=== PATIENT | female | born 1985 | race Caucasian/White ===

== ENCOUNTER 2016-07-18 11:07 | Emergency (ER) | payer MEDICAID ==
[~2016-07-18] VITALS: Ht 167.6 cm; Wt 77.0 kg
[~2016-07-18 11:07] MED LIST: ACET-818 PO; ACET500C5 PO; CEPH500C PO; FAMO-18 PO; HYDR-762 PO; METO10TA92 PO; METO5TAB11 PO; ONDA-43 PO; ONDA4TAB8 PO; PANT40TA3 PO; PHEN-538 PO
[2016-07-18 11:12] VITALS: Ht 167.6 cm; Wt 77.0 kg
[2016-07-18] MEDS ORDERED: ONDANSETRON (ODT) 4 MG TAB ODT STA (12:40)
[2016-07-18] MEDS ORDERED: IBUPROFEN 800 MG TAB PO ONE (13:00)
[2016-07-18 13:32] LABS: URINE BLOOD (Dip) POC Negative (NEGATIVE)
--- NOTE | 2016-07-18 13:45 | ERD ---
ER Documentation Chief Complaint Date/Time DATE: 07/18/16 TIME: 13:41 Chief Complaint QUARLES, nausea, diarrhea X 1 week. HPI This is a 31-year-old female who presents to the emergency department today complaining of headache, nausea and diarrhea for the past week. States that her son also has a same symptoms. States that she is on money at this time and has been eating a food pantry and she states that some of the food is . He is not taken any medication for the pain. Denies any fevers or chills. ROS All systems reviewed and are negative except as per history of present illness. Medications Home Meds Active Scripts Loperamide Hcl* (Imodium*) 2 Mg Capsule, 2 MG PO .AFTER EA LOOSE BM Y for DIARRHEA, #10 TAB Prov:VANESSA LAUREN PA-C 07/18/16 Ondansetron Hcl* (Zofran*) 4 Mg Tablet, 4 MG PO Q6H for NAUSEA AND/OR VOMITING, #30 TAB Prov:VANESSA LAUREN PA-C 07/18/16 Acetaminophen* (Tylophen*) 500 Mg Capsule, 1 CAP PO Q6H Y for PAIN AND OR ELEVATED TEMP, #30 CAP Prov:VANESSA LAUREN PA-C 07/18/16 Ibuprofen* (Motrin*) 800 Mg Tab, 800 MG PO Q6, #30 TAB Prov:VANESSA LAUREN PA-C 07/18/16 Acetaminophen* (Tylophen*) 500 Mg Capsule, 500 MG PO Q6H Y for PAIN LEVEL 1-5, # 20 TAB Prov:ZAID FARIA 04/18/15 Ondansetron Hcl* (Zofran*) 4 Mg Tablet, 4 MG PO Q8, #20 TAB Prov:ZAID FARIA 04/18/15 Famotidine* (Pepcid*) 20 Mg Tablet, 20 MG PO DAILY for 30 Days, TAB Prov:ZAID FARIA 04/18/15 Metoclopramide* (Reglan*) 10 Mg Tablet, 10 MG PO Q6 Y for NAUSEA AND/OR VOMITING , #20 TAB Prov:CIARA LYN MD 02/19/15 Hydrocodone Bit-Acetaminophen* ([place]*) 10-325 Mg Tablet, 1 TAB PO Q6 Y for PAIN , #20 TAB Prov:CIARA LYN MD 02/19/15 Pantoprazole* (Protonix*) 40 Mg Tablet.dr, 40 MG PO DAILY, #30 TAB Prov:CIARA LYN MD 02/19/15 Ondansetron Hcl* (Zofran*) 4 Mg Tab, 4 MG PO Q6H Y for NAUSEA AND OR VOMITING, # 20 TAB Prov:SPARKLE ROBLES 04/22/14 Reported Medications Phenazopyridine Hcl* (Pyridium*) 200 Mg Tab, 200 MG PO TID Y for DYSURIA, TAB 04/21/14 Acetaminophen-Codeine* (Tylenol No.3*) 300-30 Mg Tablet, 1 TAB PO Q8 Y for PAIN , TAB 04/21/14 Metoclopramide Hcl* (Metoclopramide Hcl*) 5 Mg Tablet, 5 MG PO TID, TAB 04/20/14 Cephalexin* (Cephalexin*) 500 Mg Capsule, 500 MG PO QID, CAP 04/19/14 Allergies Allergies: Coded Allergies: No Known Allergy (Unverified , 04/17/15) PMhx/Soc History of Surgery: Yes (cholecystectomy , c section ) Anesthesia Reaction: No Hx Neurological Disorder: No Hx Respiratory Disorders: No Hx Cardiac Disorders: No Hx Psychiatric Problems: No Hx Miscellaneous Medical Probl: Yes (acid reflux ) Hx Alcohol Use: Yes (socially) Hx Substance Use: No Hx Tobacco Use: No Smoking Status: Never smoker Physical Exam Vitals Vital Signs Date Time Temp Pulse Resp B/P Pulse Ox O2 Delivery O2 Flow Rate FiO2 07/18/16 11:12 98.4 75 18 132/82 98 Physical Exam Const: No acute distress Head: Atraumatic Eyes: Normal Conjunctiva ENT: Normal External Ears, Nose and Mouth. Neck: Full range of motion..~ No meningismus. Resp: Clear to auscultation bilaterally Cardio: Regular rate and rhythm, no murmurs Abd: Soft, suprapubic tenderness, non distended. Normal bowel sounds. No right lower quadrant pain. No left lower quadrant pain. Skin: No petechiae or rashes Neur: Awake and alert Psych: Normal Mood and Affect Results 24 hrs Laboratory Tests Test 07/18/16 13:33 Bedside Urine Blood Negative Bedside Urine Glucose (UA) Negative Bedside Urine Ketones (LAB) Trace Bedside Urine Leukocyte Esterase (L Negative Bedside Urine Nitrite (LAB) Negative Bedside Urine Protein (LAB) Negative Bedside Urine pH (LAB) 5.5 Current Medications Medications (Trade) Dose Ordered Sig/[place] Route PRN Reason Start Time Stop Time Status Last Admin Dose Admin Ondansetron HCl (Zofran Odt) 4 mg ONCE STAT ODT 07/18/16 12:40 07/18/16 12:42 DC 07/18/16 12:57 Ibuprofen (Motrin) 800 mg ONCE ONCE PO 07/18/16 13:00 07/18/16 13:01 DC 07/18/16 12:57 Procedures/MDM This is a 31-year-old female who presents to the emergency department today complaining of nausea, headache and diarrhea for the past week. Patient indicated that she is low on money at this time and has been eating at a food pantry and states that some of the food is . Patient states her son also has similar symptoms. Patient also had some suprapubic tenderness on physical exam and therefore did obtain a UA UA is negative for infection. test is negative Patient's symptoms at this time consistent with nausea and diarrhea versus gastroenteritis possibly viral specially given that son have the exact same symptoms. I do not feel the patient requires laboratory work or imaging at this time. She is afebrile and otherwise well-appearing. has no right upper quadrant pain and no right lower quadrant or left lower quadrant pain and low suspicion for acute surgical abdomen. I Do not feel the patient requires antibiotics. Patient given Zofran and Motrin here in the emergency department and symptoms improved. Patient will be given a perception for Tylenol, Motrin, Zofran and Imodium. At this time the patient is stable for discharge and outpatient management. Patient should follow up with their PCP in the next 1-2 days. They may return to the emergency department sooner for any persistent or worsening of symptoms. Patient understood and agreed with the plan. Departure Diagnosis: Primary Impression: Multiple complaints Condition: VANESSA Dang PA-C Jul 18, 2016 13:45
[2016-07-18] MEDS ORDERED: LOPE2CAP PO (13:46)
[2016-07-18] MEDS ORDERED: ONDA4TAB8 PO (13:46)
[2016-07-18] MEDS ORDERED: ACET500C5 PO (13:46)
[2016-07-18] MEDS ORDERED: IBUP800T25 PO (13:46)
== END 2016-07-18 14:08 | disposition home or self-care (01) ==
LOC: FTE 11:07
DX: R51 Headache (principal); R11.0 Nausea; R19.7 Diarrhea, unspecified; R10.30 Lower abdominal pain, unspecified
CPT/HCPCS: 81003; Z7610; 99283

== ENCOUNTER 2016-09-29 20:17 | Emergency (ER) | payer SELFPAY ==
[~2016-09-29] VITALS: Ht 162.6 cm; Wt 88.0 kg
[~2016-09-29 20:17] MED LIST changes: +IBUP800T25 PO; +LOPE2CAP PO
[2016-09-29 20:23] VITALS: Ht 162.6 cm; Wt 88.0 kg
== END 2016-09-29 22:11 | disposition left against medical advice (07) ==
LOC: FTE 20:17
DX: Z53.21 Procedure and treatment not carried out due to patient leaving prior to being seen by health care provider (principal)

== ENCOUNTER 2017-11-20 09:39 | Emergency (ER) | END 2017-11-20 11:45 | disposition home or self-care (01) ==

== ENCOUNTER 2018-02-28 13:54 | Emergency (ER) | END 2018-02-28 19:36 | disposition home or self-care (01) ==

== ENCOUNTER 2018-03-13 09:00 | Emergency (ER) | END 2018-03-13 13:07 | disposition home or self-care (01) ==

== ENCOUNTER 2018-05-23 10:48 | Emergency (ER) | END 2018-05-23 11:49 | disposition home or self-care (01) ==

== ENCOUNTER 2018-08-24 20:34 | Outpatient (CLI) | payer MEDICAID ==
[~2018-08-24] VITALS: Ht 167.6 cm; Wt 103.5 kg
[2018-08-24 20:27] VITALS: Ht 167.6 cm; Wt 103.5 kg
[~2018-08-24 20:34] MED LIST changes: -ACET-818 PO; -ACET500C5 PO; -CEPH500C PO; -FAMO-18 PO; +FERR325T5 PO; -HYDR-762 PO; -IBUP800T25 PO; -LOPE2CAP PO; -METO10TA92 PO; -METO5TAB11 PO; -ONDA-43 PO; -ONDA4TAB8 PO; -PANT40TA3 PO; -PHEN-538 PO; +PREN-93 PO
[2018-08-24 20:42] VITALS: BP 106/65; PULSE 89; RESP 18
[2018-08-25] MEDS ORDERED: LACTATED RINGER'S 500 ML IV ONE
[2018-08-25] MEDS ORDERED: LACTATED RINGER'S 1,000 ML IV SCH (00:30)
--- NOTE | 2018-08-25 01:35 | PN ---
Triage Information Date/Time Reason for visit: Possible leakage of fluid Weeks of Gestation 31-week and 5 days /Para Diabetes: none Hypertention: none Objective Vital Signs Date Temp Pulse Resp B/P (MAP) Pulse Ox O2 O2 Flow FiO2 Time Delivery Rate 08/24/18 98.2 89 18 106/65 Room Air 20:42 (79) Heart Rate: 150's Contractions: None Results/Medications Results 24 hrs Laboratory Tests Test 08/24/18 21:10 Membranes Rupture NEGATIVE Medications Current Medications Lactated Ringer's 1,000 ml @ 125 mls/hr Q8H IV Last administered on 08/25/18at 00:27; Admin Dose 125 MLS/HR; Start 08/25/18 at 00:30 Imaging Results Single live intrauterine gestation. Cardiac activity: 163 beats per minute. Presentation: Cephalic Placenta: Location: Anterior. Appearance: No abruption. Amniotic Fluid: LAUREN = 11.13 cm Gestational Age: LMP estimated gestational age: 32 weeks 0 days IMPRESSION: 1. Single live intrauterine gestation. 2. Amniotic fluid index is 11.13 cm, within normal limits. Disposition: Discharge Assessment/Plan 33-year-old with single intrauterine at 31 weeks and 5 days with a HILARY of 10/19/2018 complaining of possible leakage of fluid. She states good movement. She denies nausea, vomiting, shortness of breath, chest pain, headache, visual changes, vaginal bleeding. -FHR: No sign of metabolic acidosis- Category I. -There was prolonged acceleration, IV fluid given. -Contractions: None -Speculum exam performed, no leakage or gush of fluid seen. Nitrazine and ROM plus were negative -Ultrasound performed as noted above -Contractions: None -Symptoms and sign of labor, preeclampsia, kick count discussed with patient, she voiced understanding. All of her questions answered. -Patient was discharged home in stable condition with the appropriate discharge instructions provided. I would like patient to have close follow-up with her primary physician or outpatient clinic in 1-2 days or return to triage for worsening symptoms or any other urgent concerns. DOROTEO ZAIDI Aug 25, 2018 01:35
--- NOTE | 2018-08-25 01:46 | TRIAGE ---
OB Triage Datetime Report Generated by CPN: 08/25/2018 01:46 Datetime: 08/25/2018 01:30 Labor Evaluation Frequency: none Monitor Mode: External Heart Rate FHR Baseline Rate: 135 Monitor Mode: External US Variability: Moderate 6-25 bpm Accelerations: 15X15 Decelerations: None Category: Category I Datetime: 08/25/2018 01:00 Labor Evaluation Frequency: none Monitor Mode: External Heart Rate FHR Baseline Rate: 135 Monitor Mode: External US Variability: Moderate 6-25 bpm Accelerations: 15X15 Decelerations: None Comments: Frequent loss of contact Datetime: 08/25/2018 00:26 Labor Evaluation Frequency: none Monitor Mode: External Pattern: Normal: <= 5 Contractions in 10 Minutes Resting Tone [place]: Relaxed Heart Rate FHR Baseline Rate: 135 Monitor Mode: External US FHR Baseline Changes: No Baseline Change Variability: Moderate 6-25 bpm Accelerations: 15X15 Decelerations: None Category: Category I Datetime: 08/25/2018 00:00 Labor Evaluation Frequency: x1 Monitor Mode: External Duration (sec)2399: 60 Heart Rate FHR Baseline Rate: 140 Monitor Mode: External US Variability: Moderate 6-25 bpm Accelerations: Prolonged Decelerations: Variable Datetime: 08/24/2018 23:48 Comments: Patient states she feels active movement. Datetime: 08/24/2018 23:11 Stage of : OB Triage Temperature Route: Oral Resting Tone [place]: Relaxed Contraction Comments: no contractions palpated at this time Comments: Patient states she feels active movement. Datetime: 08/24/2018 23:00 Labor Evaluation Frequency: x1 Monitor Mode: External Duration (sec)2399: 120 Heart Rate FHR Baseline Rate: 145 Monitor Mode: External US Variability: Moderate 6-25 bpm Accelerations: Prolonged Decelerations: None Category: Category I Datetime: 08/24/2018 22:10 Vaginal Exam Membrane Status: Intact Datetime: 08/24/2018 22:00 Labor Evaluation Frequency: none Monitor Mode: External Heart Rate FHR Baseline Rate: 135 Monitor Mode: External US Variability: Moderate 6-25 bpm Accelerations: Prolonged Decelerations: None Category: Category I Datetime: 08/24/2018 21:09 Pool: Negative Nitrazine: Negative Datetime: 08/24/2018 21:00 Labor Evaluation Frequency: x1 Monitor Mode: External Duration (sec)2399: 80 Heart Rate FHR Baseline Rate: 145 Monitor Mode: External US Variability: Moderate 6-25 bpm Accelerations: 15X15 Decelerations: None Datetime: 08/24/2018 20:42 Stage of : OB Triage Assessment Type: Triage Maternal Assessment Level of Consciousness: Fully Conscious DTR's/Clonus: DTRs 2+; No Clonus Headache: Denies Blurred Vision: No Respiratory Effort: Unlabored; Regular Rhythm; Equal Expansion Breath Sounds, Left: Clear and Equal Breath Sounds, Right: Clear and Equal Nausea/Vomiting: Denies RUQ Epigastric Pain: Denies Lower Extremities Edema: None Degree: None Upper Extremities Edema: None Degree: None Facial Edema: None Temperature Route: Oral Fall Risk Assessment History of Falling: (0) No Secondary Diagnosis: (0) No Ambulatory Aid: (0) Bedrest/Nurse Assist IV Therapy: (0) No Gait: (0) Normal/Bedrest/Immobile Mental Status: (0) Oriented to Own Ability Fall Score: 0 Fall Risk Score Definition: No Risk: No action required Comments: Patient states she feels active movement. Pain Assessment Pain Scale: 6 Pain Presence: Intermittent Pain Type: Pressure Pain Location: Abdomen Pain Relief Measures: Comfort Measures Datetime: 08/24/2018 20:39 Monitor Mode: External (Annotations: applied) Resting Tone [place]: Relaxed Monitor Mode: External US (Annotations: applied) Datetime: 08/24/2018 20:27 Time of Arrival: 08/24/2018 20:27 EGA: 31.5 Arrived By: Wheelchair Arrived From: Home Chief Complaint: Leaking since 08/24/18 at 2000 Movement: Present Contractions: Denies/Absent Rupture of Membranes: Unsure Vaginal Bleeding: None Vaginal Discharge: Denies Recent Sexual Intercouse: Denies Abdominal Trauma: Not Applicable Patient Complaints: Other Additional Patient Complaints: abdominal pressure Time Provider Notified: 08/24/2018 21:39 Provider Notified: Dr. Santacruz Initial Plan: EFM x2 Datetime: 07/30/2018 17:30 Labor Evaluation Frequency: NONE Monitor Mode: External Pattern: Normal: <= 5 Contractions in 10 Minutes Resting Tone [place]: Relaxed Heart Rate FHR Baseline Rate: 155 Monitor Mode: External US FHR Baseline Changes: No Baseline Change Variability: Moderate 6-25 bpm Accelerations: 15X15 Decelerations: None Category: Category I Datetime: 07/30/2018 16:30 Labor Evaluation Frequency: NONE Monitor Mode: External Pattern: Normal: <= 5 Contractions in 10 Minutes Resting Tone [place]: Relaxed Heart Rate FHR Baseline Rate: 150 Monitor Mode: External US FHR Baseline Changes: No Baseline Change Variability: Moderate 6-25 bpm Accelerations: 15X15 Decelerations: None Category: Category I Datetime: 07/30/2018 15:30 Labor Evaluation Frequency: NONE Monitor Mode: External Pattern: Normal: <= 5 Contractions in 10 Minutes Resting Tone [place]: Relaxed Heart Rate FHR Baseline Rate: 150 Monitor Mode: External US FHR Baseline Changes: No Baseline Change Variability: Moderate 6-25 bpm Accelerations: 15X15 Decelerations: None Category: Category I Datetime: 07/30/2018 14:30 Labor Evaluation Frequency: 0 Monitor Mode: External Heart Rate FHR Baseline Rate: 150 Monitor Mode: External US FHR Baseline Changes: No Baseline Change Variability: Moderate 6-25 bpm Accelerations: 10X10 Decelerations: None Category: Category I Datetime: 07/30/2018 13:30 Labor Evaluation Frequency: 0 Monitor Mode: External Heart Rate FHR Baseline Rate: 145 Monitor Mode: External US FHR Baseline Changes: No Baseline Change Variability: Moderate 6-25 bpm Accelerations: 10X10 Decelerations: None Category: Category I Datetime: 07/30/2018 12:50 Stage of : OB Triage Assessment Type: Triage Maternal Assessment Level of Consciousness: Fully Conscious DTR's/Clonus: DTRs 2+; No Clonus Headache: Denies Blurred Vision: No Respiratory Effort: Unlabored; Regular Rhythm; Equal Expansion Breath Sounds, Left: Clear and Equal Breath Sounds, Right: Clear and Equal Nausea/Vomiting: Denies RUQ Epigastric Pain: Denies Lower Extremities Edema: None Upper Extremities Edema: None Facial Edema: None Temperature Route: Oral Fall Risk Assessment History of Falling: (0) No Secondary Diagnosis: (0) No Ambulatory Aid: (0) Bedrest/Nurse Assist IV Therapy: (0) No Gait: (0) Normal/Bedrest/Immobile Mental Status: (0) Oriented to Own Ability Fall Score: 0 Fall Risk Score Definition: No Risk: No action required Pain Assessment Pain Scale: 0 Pain Presence: None/Denies Pain Type: N/A Pain Goal: 2 Datetime: 07/30/2018 12:41 Time of Arrival: 07/30/2018 12:40 EGA: 28.1 Arrived By: Ambulatory Arrived From: Home Chief Complaint: CHEST PAIN, DIZZINESS, NAUSEA/VOMITING, CRAMPING AT C/S SITE Movement: Present Contractions: Occasional Rupture of Membranes: Denies Vaginal Bleeding: None Vaginal Discharge: Denies Recent Sexual Intercouse: Denies Abdominal Trauma: Not Applicable Patient Complaints: Cramping; Other Initial Plan: NST Datetime: 07/14/2018 19:00 Arrived By: Ambulatory Arrived From: Home Movement: Present Rupture of Membranes: Denies Vaginal Bleeding: None Vaginal Discharge: Denies Recent Sexual Intercouse: Denies Abdominal Trauma: Not Applicable Patient Complaints: Other Datetime: 07/14/2018 14:09 EGA: 25.6 Fall Score: 0 Fall Risk Score Definition: No Risk: No action required
== END 2018-08-25 01:41 | disposition home or self-care (01) ==
LOC: OBT 20:34 → L-D 20:35 → OBT 08-25 01:41
PROVIDERS: ATTEND Obstetrics & Gynecology
DX: O41.93X0 Disorder of amniotic fluid and membranes, unspecified, third trimester, not applicable or unspecified (principal); Z3A.31 31 weeks gestation of pregnancy
CPT/HCPCS: 36415; 76815; 84112; 96360; J7120; Z7500; G0463

== ENCOUNTER 2018-09-10 20:26 | Inpatient (IN) | payer MEDICAID ==
[~2018-09-10] VITALS: Ht 167.6 cm; Wt 103.9 kg
[2018-09-10 20:43] VITALS: BP 116/69; PULSE 94; Ht 167.6 cm; Wt 103.9 kg
[2018-09-10] MEDS ORDERED: NA PHOSPHATE/BIPHOS 133 ML ENEMA PR ONE (21:00)
[2018-09-10] MEDS ORDERED: MAGNESIUM HYDROXIDE 30ML CUP PO ONE (22:00)
[2018-09-10] MEDS ORDERED: BISACODYL 10 MG SUPP PR ONE (22:00)
[2018-09-10] MEDS: LACTATED RINGER'S 1,000 ML IV SCH (22:17)
[2018-09-11] MEDS ORDERED: ACETAMINOPHEN 325 MG TAB PO PRN
[2018-09-11] MEDS: LACTATED RINGER'S 1,000 ML IV SCH ×5 (00:05→14:56)
--- NOTE | 2018-09-11 00:21 | HP ---
Date/Time of Note Date/Time of Note DATE: 09/11/18 TIME: 00:11 OB - History Hx of Present Free Text/Dictation 09/11/2018 Estimated Due Date: Oct 19, 2018 : 3 Para: 2 Spontaneous : 0 Therapeutic : 0 Care: Good Care Obstetrical Complications: None Medical Complications: None Other Concerns: 33-year-old wtih IUP at 34 weeks and 1 day and history of chronic constipation that worsened during presented to the hospital with co mplaint of worsening of her constipation, bloating symptoms, nausea and vomiting for the past 5 months. Patient reports had been taking MiraLAX and stool softener and did not help with her symptoms.\ Patient reports is able to pass gas. Denies any fever or chills. had been in triage since afternoon and had Fleet enema as well as received Dulcolax vaginal suppository and milk of magnesia and that did not help with constipation. Still is not able to defecate. Reports crampy pain in the upper and lower a bdomen especially after he received a stool softener. There was occasional rate contraction on the monitor that resolved after h ydration. Antepartum course was uncomplicated. Past medical history: Denies any medical problems except constipation Past surgical history: None Allergy history: NKDA Social history. Patient denies of smoking drinking alcohol or using any drugs Past Family/Social History * Past Medical, Surgical, Family and Obstetric Histories reviewed from chart. OB Admission Exam Vital Signs Vital Signs Vital Signs Date Temp Pulse Resp B/P (MAP) Pulse Ox O2 O2 Flow FiO2 Time Delivery Rate 09/10/18 98.2 94 116/69 20:43 (85) Physical Exam HEENT: WNL Lungs: Clear Abdomen: WNL Extremities: Normal Cervical Dilatation: None Effacement: 0% Membranes: Intact Heart Rate: 130's Accelerations: Accelerations Present Decelerations: No Decelerations Varibility: Moderate Contractions on Admission: None Intensity: Mild OB Assessment/Plan Other Assessment: IUP at 34 weeks and 1 day Chronic constipation. Worsened in Patient received plenty of stool softener and enema Still feels significant constipation and unable to defecate Exam did not show evidence of fecal impaction. Pelvic exam. cervix is closed and long, no evidence of labor Admit the patient to antepartum service Consider Magnesium citrate. Possible GI consult tomorrow if the symptoms persists Continous monitoring. Base line cervical length ordered. GODWIN GOYAL MD Sep 11, 2018 00:21
[2018-09-11] MEDS ORDERED: MAGNESIUM CITRATE 300 ML BTL PO ONE (00:30)
[2018-09-11] MEDS: PRENATAL VITAMIN PO SCH (10:10)
[2018-09-11] MEDS: DOCUSATE SODIUM 100 MG CAP PO SCH ×2 (10:10→21:58)
[2018-09-11] MEDS: AL HYDROX/MG HYDROX/SIMETH 30 ML CUP PO PRN (15:03)
--- NOTE | 2018-09-11 15:24 | CONS ---
Assessment/Plan Assessment/Plan Hospital Course (Demo Recall) Summary Assessment and Plan: Assessment: Single uterine at 34 weeks Chronic constipation -x3 episodes of diarrhea after laxatives Reported Dark stool- likely 2/2 to iron - will check CBC in am Nausea/vomiting- improved Plan: CBC in am Add MiraLAX BID- to assist with sx, Diet as tolerated Will hold off on imaging at this time, pt now having BMs- if sx worsen will consider MRI Further recommendations based on clinical course Nurse states pt c/o some nausea- will order x1 dose of Zofran 4mg -Checked with pharmacy to verify safety profile in at patient who is 34 weeks Pt seen in collaboration with Dr. Malik CC: ORLIN MALIK ; Consultation Date/Type/Reason Admit Date/Time Sep 11, 2018 at 00:00 Date of Consultation: Sep 11, 2018 Type of Consult GI Reason for Consultation Worsening constipation/Abdominal pain Date/Time of Note DATE: 09/11/18 TIME: 15:18 Hx of Present Illness This is a 33-year-old female currently 32 weeks who presented to the hospital with worsening abdominal pain secondary to constipation and associated with nausea/vomiting. Patient states she has had chronic constipation whole life she is previously been Reglan 2 other times without issues regarding constipation. However this she is noted difficulty having bowel movements. Her last bowel movement was 3 days ago described as hard pebble- like. She additionally complained remote history of dark stool, currently she is taking vitamins with iron. Hemoglobin has not been checked.At home patient reports taking MiraLAX and stool softeners which did not help her symptoms she is able to pass gas since hospitalization she received fleets enema as well as Dulcolax vaginal suppository and milk of magnesia. Today she has had x3 episodes of watery brown diarrhea. She denies abdominal pain with palpation, c/o some nausea without vomiting. At this point symptoms appear to be improving, we will add MiraLAX BID, and check CBC to assess for anemia. Review of Systems: A 12 system, review was conducted and is negative except as noted in the HPI or here. Past Medical History Home Meds Reported Medications Ferrous Sulfate (Ferrous Sulfate) 325 Mg Tablet., 325 MG PO 07/14/18 Vit No.124/Iron/FA ( Vitamin Tablet) 1 Each Tablet, 1 EACH PO, TAB 07/14/18 Medications Current Medications Lactated Ringer's 1,000 ml @ 250 mls/hr Q4H IV Last administered on 09/10/18at 22:17; Admin Dose 250 MLS/HR; Start 09/10/18 at 22:00 Lactated Ringer's 1,000 ml @ 125 mls/hr Q8H IV Last administered on 09/11/18at 14:56; Admin Dose 125 MLS/HR; Start 09/10/18 at 23:49 Prenat Multivit/ [place]/Iron/Folic Ac () 1 tab DAILY PO Last administered on 09/11/18 10:10; Admin Dose 1 TAB; Start 09/11/18 at 09:00 Docusate Sodium (Colace) 100 mg BID PO Last administered on 09/11/18 10:10; Admin Dose 100 MG; Start 09/11/18 at 09:00 Acetaminophen (Tylenol Tab) 650 mg Q4H PRN PO .PAIN OR TEMP Last administered on 09/11/18at 00:05; Admin Dose 650 MG; Start 09/11/18 at 00:00 Al Hydrox/Mg Hydrox/Simethicone (Mag-Al Plus) 30 ml Q6H PRN PO .GI UPSET Last a dministered on 09/11/18at 15:03; Admin Dose 30 ML; Start 09/11/18 at 00:00 Allergies: Coded Allergies: No Known Allergy (Unverified , 08/24/18) Social History Smoking Status: Never smoker Exam/Review of Systems Exam Vitals Vital Signs Date Temp Pulse Resp B/P (MAP) Pulse Ox O2 O2 Flow FiO2 Time Delivery Rate 09/10/18 98.2 94 116/69 20:43 (85) Intake and Output 09/10/18 09/10/18 09/11/18 1515:00 23:00 07:00 IntakeIntake Total 1750 ml OutputOutput Total 1200 ml BalanceBalance 550 ml Exam PHYSICAL EXAMINATION: GENERAL: Well developed, well nourished, alert & oriented x 3, in no acute distress, 34 week female SKIN: No lesions EYES: Pupils equal reactive to light and accommodation, no discharge. EARS/NOSE AND THROAT: Ears normal, nose normal, oropharynx normal NECK: Supple, no masses CHEST: Inspection within normal limits. CARDIOVASCULAR: Heart: Regular rate and rhythm RESPIRATORY: Lungs clear to auscultation GASTROINTESTINAL AND LIVER: Abdomen: Soft, non tenderness, distended- pt 34 weeks , no hernias, no masses, no organomegaly, no ascites, no guarding, no rebound tenderness, normoactive bowel sounds. Rectal: external hemorrhoids noted Medications Medication Current Medications Lactated Ringer's 1,000 ml @ 250 mls/hr Q4H IV Last administered on 09/10/18 22:17; Admin Dose 250 MLS/HR; Start 09/10/18 at 22:00 Lactated Ringer's 1,000 ml @ 125 mls/hr Q8H IV Last administered on 09/11/18 14:56; Admin Dose 125 MLS/HR; Start 09/10/18 at 23:49 Prenat Multivit/ [place]/Iron/Folic Ac () 1 tab DAILY PO Last administered on 09/11/18 10:10; Admin Dose 1 TAB; Start 09/11/18 at 09:00 Docusate Sodium (Colace) 100 mg BID PO Last administered on 09/11/18 10:10; Admin Dose 100 MG; Start 09/11/18 at 09:00 Acetaminophen (Tylenol Tab) 650 mg Q4H PRN PO .PAIN OR TEMP Last administered on 09/11/18 00:05; Admin Dose 650 MG; Start 09/11/18 at 00:00 Al Hydrox/Mg Hydrox/Simethicone (Mag-Al Plus) 30 ml Q6H PRN PO .GI UPSET Last administered on 09/11/18 15:03; Admin Dose 30 ML; Start 09/11/18 at 00:00 MYRNA LANGFORD Sep 11, 2018 15:24
[2018-09-11] MEDS ORDERED: POLYETHYLENE GLYCOL 17 GM PACKET PO SCH (15:30)
[2018-09-11] MEDS ORDERED: ONDANSETRON 4 MG INJ IV ONE (16:00)
[2018-09-11] MEDS: POLYETHYLENE GLYCOL 17 GM PACKET PO SCH (23:29)
[2018-09-12] MEDS: LACTATED RINGER'S 1,000 ML IV SCH ×2 (00:17→08:13)
[2018-09-12] MEDS: AL HYDROX/MG HYDROX/SIMETH 30 ML CUP PO PRN ×2 (05:20→16:59)
[2018-09-12] MEDS: POLYETHYLENE GLYCOL 17 GM PACKET PO SCH (08:13)
[2018-09-12] MEDS: DOCUSATE SODIUM 100 MG CAP PO SCH (16:59)
[2018-09-12] MEDS: PRENATAL VITAMIN PO SCH (16:59)
--- NOTE | 2018-09-12 18:15 | PN ---
Date/Time of Note Date/Time of Note DATE: 09/12/18 TIME: 18:07 Assessment/Plan VTE Prophylaxis SCD applied (from Nsg): Yes Pharmacological prophylaxis: NA/contraindicated Pharm contraindication: other Lines/Catheters IV Catheter Type (from Nrsg): Peripheral IV Assessment/Plan Assessment/Plan Assessment: Single uterine at 34 weeks Pyrosis History of bulimia History of hyperemesis gravidarum Chronic constipation -x3 episodes of diarrhea after laxatives Reported Dark stool- likely 2/2 to iron - will check CBC in am Nausea/vomiting- improved Plan: Start Zantac twice daily Continue MiraLAX BID Diet as tolerated Nurse states pt c/o some nausea- will order x1 dose of Zofran 4mg -Checked with pharmacy to verify safety profile in at patient who is 34 weeks Pt seen in collaboration with Dr. Reed Subjective: Patient is having regular bowel movements on MiraLAX. She had watery bowel movements yesterday and formed stool today x2. She denies abdominal pain. Complaining of chronic heartburn. Patient reports history of bulimia and hyperemesis gravidarum during her first trimester. Recommend Zantac twice daily for heartburn. Further workup as an EGD or possible gastric emptying study should be done after giving . Patient has been suffering from chronic constipation most of her life. Discussed low-fat map diet, fiber supplements, probiotics and MiraLAX use. Exam PHYSICAL EXAMINATION: GENERAL: Well developed, well nourished, alert & oriented x 3, in no acute distress, 34 week female SKIN: No lesions EYES: Pupils equal reactive to light and accommodation, no discharge. EARS/NOSE AND THROAT: Ears normal, nose normal, oropharynx normal NECK: Supple, no masses CHEST: Inspection within normal limits. CARDIOVASCULAR: Heart: Regular rate and rhythm RESPIRATORY: Lungs clear to auscultation GASTROINTESTINAL AND LIVER: Abdomen: Soft, non tenderness, distended- pt 34 weeks , no hernias, no masses, no organomegaly, no ascites, no guarding, no rebound tenderness, normoactive bowel sounds. Rectal: external hemorrhoids noted Result Diagram: 09/12/18 0427 Results 24hrs Laboratory Tests Test 09/12/18 04:27 09/12/18 05:56 White Blood Count 7.5 Red Blood Count 3.67 L Hemoglobin 11.5 L Hematocrit 35.0 L Mean Corpuscular Volume 95.4 Mean Corpuscular Hemoglobin 31.3 Mean Corpuscular Hemoglobin Concent 32.9 Red Cell Distribution Width 14.2 Platelet Count 185 Mean Platelet Volume 11.5 H Immature Granulocytes % 0.500 H Neutrophils % 53.0 Lymphocytes % 36.5 Monocytes % 9.1 Eosinophils % 0.5 Basophils % 0.4 Nucleated Red Blood Cells % 0.0 Immature Granulocytes # 0.040 H Neutrophils # 4.0 Lymphocytes # 2.7 Monocytes # 0.7 Eosinophils # 0.0 Basophils # 0.0 Nucleated Red Blood Cells # 0.0 Lab Scanned Report REFERENCE LAB CC: TIFFANY REED MD ; Exam/Review of Systems Exam Vitals Vital Signs Date Temp Pulse Resp B/P (MAP) Pulse Ox O2 O2 Flow FiO2 Time Delivery Rate 09/10/18 98.2 94 116/69 20:43 (85) Intake and Output 09/11/18 09/11/18 09/12/18 1515:00 23:00 07:00 IntakeIntake Total 2900 ml 1825 ml OutputOutput Total 1300 ml 1500 ml BalanceBalance 1600 ml 325 ml Results Results 24hrs Laboratory Tests Test 09/12/18 04:27 09/12/18 05:56 White Blood Count 7.5 Red Blood Count 3.67 L Hemoglobin 11.5 L Hematocrit 35.0 L Mean Corpuscular Volume 95.4 Mean Corpuscular Hemoglobin 31.3 Mean Corpuscular Hemoglobin Concent 32.9 Red Cell Distribution Width 14.2 Platelet Count 185 Mean Platelet Volume 11.5 H Immature Granulocytes % 0.500 H Neutrophils % 53.0 Lymphocytes % 36.5 Monocytes % 9.1 Eosinophils % 0.5 Basophils % 0.4 Nucleated Red Blood Cells % 0.0 Immature Granulocytes # 0.040 H Neutrophils # 4.0 Lymphocytes # 2.7 Monocytes # 0.7 Eosinophils # 0.0 Basophils # 0.0 Nucleated Red Blood Cells # 0.0 Lab Scanned Report REFERENCE LAB Medications Medication Current Medications Lactated Ringer's 1,000 ml @ 125 mls/hr Q8H IV Last administered on 09/12/18at 08:13; Admin Dose 125 MLS/HR; Start 09/10/18 at 23:49 Prenat Multivit/ Merchandise Flow Team Member/Iron/Folic Ac () 1 tab DAILY PO Last administered on 09/12/18at 16:59; Admin Dose 1 TAB; Start 09/11/18 at 09:00 Docusate Sodium (Colace) 100 mg BID PO Last administered on 09/12/18 16:59; Admin Dose 100 MG; Start 09/11/18 at 09:00 Acetaminophen (Tylenol Tab) 650 mg Q4H PRN PO .PAIN OR TEMP Last administered on 09/11/18at 00:05; Admin Dose 650 MG; Start 09/11/18 at 00:00 Al Hydrox/Mg Hydrox/Simethicone (Mag-Al Plus) 30 ml Q6H PRN PO .GI UPSET Last administered on 09/12/18 16:59; Admin Dose 30 ML; Start 09/11/18 at 00:00 Polyethylene Glycol (Miralax) 17 gm BID PO Last administered on 09/12/18at 08:13; Admin Dose 17 GM; Start 09/11/18 at 21:00 CAROLINE BARORSO NP Sep 12, 2018 18:15
--- NOTE | 2018-09-12 19:08 | DS ---
Date/Time of Note Date/Time of Note DATE: 09/12/18 TIME: 19:05 Obstetrical Discharge Record Final Diagnosis Final Diagnosis: not delivered Other Final Diagnosis constipation Complications Augmentation: No Induction: No Rupture of Membranes: No Condition on Discharge Physical Assessment Last Vitals: vss afebrile Voiding: Yes Bowel Movement: Yes Breast: Soft, non-tender Fundus: Other () Abdomen and Incision: soft no tenderness Episiotomy: n/a Calf Tenderness: No Patient Condition: Stable ( , undelivered) BRYAN WILSON MD Sep 12, 2018 19:08
[2018-09-12] MEDS ORDERED: RANITIDINE 150 MG TAB PO SCH (21:00)
== END 2018-09-12 19:15 | disposition home or self-care (01) | DRG 833 ==
LOC: OBT 20:26 → L-D 20:27 → OBT 09-11 → L-D 09-11
PROVIDERS: ADMIT Obstetrics & Gynecology; ATTEND Obstetrics & Gynecology
DX: O99.613 Diseases of the digestive system complicating pregnancy, third trimester (principal); K59.09 Other constipation; R12 Heartburn; O21.8 Other vomiting complicating pregnancy; Z3A.34 34 weeks gestation of pregnancy
CPT/HCPCS: 36415; 76817; 76818; 85025; 96360; G0463; J2405; J7120

== ENCOUNTER 2018-09-19 11:25 | Inpatient (IN) | payer MEDICAID ==
[2018-09-19] MEDS ORDERED: AL HYDROX/MG HYDROX/SIMETH 30 ML CUP PO ONE (12:00)
[2018-09-19] MEDS ORDERED: LACTATED RINGER'S 1,000 ML IV ONE ×2 (14:30→18:10)
[2018-09-19] MEDS ORDERED: TERBUTALINE 1 MG/ML INJ SC ONE (17:30)
[2018-09-19] MEDS ORDERED: LACTATED RINGER'S 1,000 ML IV SCH ×2 (17:47→22:46)
[2018-09-19] MEDS ORDERED: MISOPROSTOL 200 MCG TAB PR PRN ×2 (18:00→23:00)
[2018-09-19] MEDS ORDERED: OXYTOCIN 30 UNITS/LR 500 ML IV PRN ×2 (18:00→23:00)
[2018-09-19] MEDS ORDERED: METHYLERGONOVINE 0.2 MG INJ IM PRN ×2 (18:00→23:00)
[2018-09-19] MEDS ORDERED: CEFAZOLIN 2 GM/50 ML (PMX) 50 ML IVPB SCH (18:00)
[2018-09-19] MEDS ORDERED: OXYTOCIN 30 UNITS/LR 500 ML IV SCH ×2 (18:00→22:46)
[2018-09-19] MEDS ORDERED: CARBOPROST 250 MCG INJ IM PRN ×2 (18:00→23:00)
--- NOTE | 2018-09-19 18:07 | PREAC ---
Date/Time of Note Date/Time of Note DATE: 09/19/18 TIME: 18:05 Anesthesia Eval and Record Evaluation Time Pre-Procedure Interview DATE: 09/19/18 TIME: 18:05 Age 33 Sex female NPO: 8 hrs Preoperative diagnosis intrauterine Planned procedure repeat c section Past Medical History Past Medical History: Includes : : (3), Para: (2), Gestational age: (35.5) Surgery & Anesthesia Issues No known issue Meds Anticoagulation: No Beta Jamila within 24 hr: No Reason Beta Jamila not given: Pt. not on B-Jamila Reported Medications Ferrous Sulfate (Ferrous Sulfate) 325 Mg Tablet.dr, 325 MG PO 07/14/18 Vit No.124/Iron/FA ( Vitamin Tablet) 1 Each Tablet, 1 EACH PO, TAB 07/14/18 Current Medications Lactated Ringer's 1,000 ml @ 125 mls/hr Q8H IV Last administered on 09/19/18at 17:56; Admin Dose 125 MLS/HR; Start 09/19/18 at 17:47 Cefazolin Sodium/ Dextrose 50 ml @ 100 mls/hr ONCE IVPB ; Start 09/19/18 at 18:00 Oxytocin/Lactated Ringer's 500 ml @ 125 mls/hr POST IV ; Start 09/19/18 at 18:00 Oxytocin/Lactated Ringer's 500 ml @ 0 mls/hr ONCE PRN IV .VAGINAL BLEEDING; Start 09/19/18 at 18:00 Methylergonovine Maleate (Methergine) 0.2 mg ONCE PRN IM .VAGINAL BLEEDING; Start 09/19/18 at 18:00 Carboprost Tromethamine (Hemabate) 250 mcg ONCE PRN IM .VAGINAL BLEEDING; Start 09/19/18 at 18:00 Misoprostol (Cytotec) 1,000 mcg ONCE PRN MN .VAGINAL BLEEDING; Start 09/19/18 at 18:00 Meds reviewed: Yes Allergies Coded Allergies: No Known Allergy (Unverified , 08/24/18) Allergies Reviewed: Yes Labs/Studies Labs Reviewed: Reviewed by anesthesiologist Result Diagram: 09/19/18 1451 09/19/18 1451 Laboratory Tests 09/19/18 14:51 test: N/A Pre-procedure Exam Airway: Adequate mouth opening, Adequate thyromental dist Mallampati: Mallampati II Teeth: Normal Lung: Normal Heart: Normal ASA Physical Status ASA physical status: 2 Emergency: None Planned Anesthetic Neuraxial: Spinal Planned Pain Management Sub-arachniod narcotics, Parenteral pain med Pre-operative Attestations Prior to commencing anesthesia and surgery, the patient was re-evaluated, there was verification of: *The patient's identity *The results of appropriate recent lab work and preoperative vital signs *The above evaluation not changing prior to induction *Anesthetic plan, risk benefits, alternative and complications discussed with patient/family; questions answered; patient/family understands, accepts and wishes to proceed. YANG ANDERSON MD Sep 19, 2018 18:07
--- NOTE | 2018-09-19 18:24 | HP ---
Date/Time of Note Date/Time of Note DATE: 09/19/18 TIME: 18:23 OB - History Hx of Present Free Text/Dictation WITH PRIOR C/S ADMITTED FOR UTERINE CTX S AND PT REFUSED TERBUTAILINE AND UTERINE CTXS EVERY 3 MINUTES AND PT FEELING THEM. Care: Good Care Ultrasounds: Normal mid trimester US Obstetrical Complications: None Medical Complications: None Past Family/Social History * Past Medical, Surgical, Family and Obstetric Histories reviewed from chart. OB Admission Exam Physical Exam HEENT: WNL Heart: Rhythm Normal Lungs: Clear, Equal Abdomen: WNL Extremities: Normal Reflexes: Normal Cervical Dilatation: 1cm Effacement: 50% Station: -1 Membranes: Intact Heart Rate: 130's Accelerations: Accelerations Present Decelerations: No Decelerations Varibility: Moderate Contractions on Admission: < 5 Minutes Apart Intensity: Moderate Last 72 hours Lab Results CBC & BMP 09/19/18 14:51 Liver Function Test 09/19/18 14:51 Alanine Aminotransferase (ALT/SGPT) 36 Albumin 3.5 Alkaline Phosphatase 154 H Aspartate Amino Transf (AST/SGOT) 36 Direct Bilirubin 0.00 Total Protein 6.7 OB Assessment/Plan Reason for admission: active labor Plan: Section BERRY MALCOLM MD Sep 19, 2018 18:24
[2018-09-19] MEDS ORDERED: FAMOTIDINE 20 MG INJ IV ONE (18:30)
[2018-09-19] MEDS ORDERED: CITRIC ACID/NA CITRATE 30 ML CUP PO ONE (18:30)
[2018-09-19] MEDS ORDERED: METOCLOPRAMIDE 10 MG INJ IV ONE (18:30)
[2018-09-19] MEDS ORDERED: OXYTOCIN 30 UNITS/LR 500 ML IV ONE ×2 (18:42→19:14)
[2018-09-19] MEDS ORDERED: morphine SULFATE/PF (10 MG/10 ML) INJ ONE (18:42)
[2018-09-19] MEDS ORDERED: PHENYLephrine (100 MCG/ML) 5ML SYG ONE ×2 (18:54→19:13)
[2018-09-19] MEDS ORDERED: ONDANSETRON 4 MG INJ ONE (19:05)
[2018-09-19] MEDS ORDERED: EPHEDrine SULFATE 50 MG/5 ML SYG ONE (19:14)
--- NOTE | 2018-09-19 19:30 | OPR ---
Operative Report Planned Procedure Procedure date Sep 19, 2018 Procedure(s) 35 WEEKS IN LABOR Performed by see signature line [employer] Teacher: BRYAN WILSON MD Pre-procedure diagnosis REPEAT IN LABOR [id number] Anesthesia Type: [id number] spinal Post-Procedure Post-procedure diagnosis SAME Findings Live Baby [], Apgars [] and [], weight [], position [], [] presentation []cord. Estimated Blood Loss: 600 - 700 mls Specimen(s) none Grafts/Implant(s) none Complication(s) none Pt Condition post procedure: stable Disposition: PACU Procedure Description Under satisfactory [SPINAL ] anesthesia, the patient was prepped and draped and placed in a supine position, tilted to the left. Pfannenstiel incision was made, carried through the subcutaneous tissue. Bleeders brought under control with electrocautery. Fascia incised to the length of the incision. Rectus muscles from the fascia, divided midline. Peritoneum exposed, entered through a transverse incision. Exploration of abdomen revealed gravid uterus. Bladder flap was developed. Transverse incision was made in the lower segment of the uterus. Amniotic sac ruptured. [CLEAR ] amniotic fluid noted. [] Nasal oropharyngeal suction was performed. The baby was handed to the team for immediate attention. The placenta was delivered manually intact. Uterine cavity was cleaned with wet sponge and drainage established. Uterus closed in 2 layers using [ONE MONOCRYL] in continuous fashion. Peritoneal cavity irrigated with warm saline. Sponge, needle and instrument count reported to be correct. Abdominal peritoneum closed with [] continuously. Rectus muscle approximated with []. Fascia closed with ONE MONOCRYL[], and skin closed with luis. Estimated blood loss [700]mL. BERRY MALCOLM MD Sep 19, 2018 19:30
--- NOTE | 2018-09-19 19:36 | PAC ---
Date/Time of Note Date/Time of Note DATE: 09/19/18 TIME: 19:36 Post-Anesthesia Notes Post-Anesthesia Note Activity: WNL Respiratory function: WNL Cardiovascular function: WNL Mental status: Baseline Pain reasonably controlled: Yes Hydration appropriate: Yes Nausea/Vomiting absent: Yes Comments BP: 123/59 HR: 96 RR: 15 T: 98 SaO2: 99% YANG ANDERSON MD Sep 19, 2018 19:36
[2018-09-19] MEDS ORDERED: HYDROmorphONE 0.5 MG/0.5 ML SYG IV PRN ×2 (20:00)
[2018-09-19] MEDS ORDERED: ONDANSETRON 4 MG INJ IV PRN (20:00)
[2018-09-19] MEDS ORDERED: ZOLPIDEM 5 MG TAB PO PRN (20:00)
[2018-09-19] MEDS ORDERED: NALOXONE (0.4 MG/ML) INJ IV PRN (20:00)
[2018-09-19] MEDS ORDERED: DIPHENHYDRAMINE 50 MG INJ IV PRN (20:00)
[2018-09-19 22:10] VITALS: BP 122/75; PULSE 80; RESP 18
[2018-09-19 22:30] VITALS: BP 140/82; PULSE 101; RESP 19
[2018-09-19] MEDS ORDERED: NACL 0.9% 3 ML SYG IV SCH (23:00)
[2018-09-19] MEDS ORDERED: NA PHOSPHATE/BIPHOS 133 ML ENEMA PR PRN (23:00)
[2018-09-19] MEDS: KETOROLAC 30 MG INJ IV PRN (23:01)
[2018-09-19 23:30] VITALS: BP 121/52; PULSE 98; RESP 19
[2018-09-20 00:15] VITALS: BP 111/59; PULSE 71; RESP 18
[2018-09-20 03:52] VITALS: BP 119/68; PULSE 76; RESP 18
--- NOTE | 2018-09-20 07:26 | QN ---
Documentation Comment doing well vss abd soft d/c IV and OOB BERRY MALCOLM MD Sep 20, 2018 07:26
[2018-09-20 08:00] VITALS: BP 102/57; PULSE 80; RESP 18
[2018-09-20] MEDS: KETOROLAC 30 MG INJ IV PRN ×2 (09:00→18:42)
[2018-09-20] MEDS: LANOLIN HPA 1 PKT TOP PRN (18:54)
[2018-09-20 19:45] VITALS: BP 94/53; PULSE 80; RESP 18
[2018-09-20] MEDS: IBUPROFEN 800 MG TAB PO SCH (21:43)
[2018-09-21 04:07] VITALS: BP 92/51; PULSE 71; RESP 18
[2018-09-21] MEDS: IBUPROFEN 800 MG TAB PO SCH ×3 (05:31→21:34)
[2018-09-21 08:00] VITALS: BP 101/50; PULSE 64; RESP 19
--- NOTE | 2018-09-21 13:20 | QN ---
Documentation Comment POD#2 is stable afebrile tolerates diet No VB +Flatus +Voids VS stable Gen NAD Abd soft NT ND Incision intact Gentalia No blood at perineum -->Discharge plan tomorrow -->Ambulation -->Precautions discussed MARIO DOE M.D. Sep 21, 2018 13:20
[2018-09-21 15:53] VITALS: BP 103/59; PULSE 87; RESP 20
[2018-09-21 20:00] VITALS: BP 108/54; PULSE 66; RESP 18
[2018-09-22] VITALS (7 sets, daily range): BP systolic 105–141; BP diastolic 52–84; PULSE 20–85; RESP 18–20
[2018-09-22] MEDS: IBUPROFEN 800 MG TAB PO SCH ×3 (05:43→22:06)
[2018-09-22] MEDS: LANOLIN HPA 1 PKT TOP PRN (08:01)
--- NOTE | 2018-09-22 08:14 | DS ---
Date/Time of Note Date/Time of Note DATE: 09/22/18 TIME: 08:13 Discharge Summary Admission/Discharge Info Admit Date/Time Sep 19, 2018 at 17:45 Discharge Date/Time Discharge Diagnosis term Patient Condition: Stable Hospital Course unremarkable Home Meds Reported Medications Ferrous Sulfate (Ferrous Sulfate) 325 Mg Tablet.dr, 325 MG PO 07/14/18 Vit No.124/Iron/FA ( Vitamin Tablet) 1 Each Tablet, 1 EACH PO, TAB 07/14/18 Primary Care Provider Care Physician No Primary BERRY MALCOLM MD Sep 22, 2018 08:14
[2018-09-22] MEDS ORDERED: DIPHTH/TET/ACEL PERTUSS (ADULT) 0.5 ML VIAL IM* ONE (09:00)
[2018-09-22] MEDS ORDERED: MEASLES,MUMPS,RUBELLA VACCINE INJ SC* ONE (09:00)
[2018-09-23] MEDS: HYDROCODONE/APAP (5/325) TAB PO PRN ×2 (03:42→04:54)
[2018-09-23 04:20] VITALS: BP 105/66; PULSE 72; RESP 18
[2018-09-23] MEDS: IBUPROFEN 800 MG TAB PO SCH (05:42)
[2018-09-23 08:16] VITALS: BP 94/56; PULSE 52; RESP 18
--- NOTE | 2018-09-24 14:35 | DELSUM ---
Delivery Summary A-C Datetime Report Generated by CPN: 09/24/2018 12:31 DELIVERY PERSONNEL Cans Vacuum Tester: Jamie, Angelita MATERNAL INFORMATION Delivery Anesthesia: Spinal Medications in Delivery: See Anesthesia Record Delivery QBL (ml): 600 Placenta Cultured: No Maternal Complications: None LABOR SUMMARY EDC: 10/19/2018 00:00 No. Babies in Womb: 1 Attempted: No Labor Anesthesia: None LABOR INFORMATION Reason for Induction: Not Applicable Onset of Labor: 09/18/2018 18:00 Oxytocin: N/A Group B Beta Strep: Not Done Antibiotics # of Doses: x1 Ancef Antibiotics Time of Last Dose: 09/19/2018 18:52 Steroids Given: None Reason Steroids Not Administered: Not Applicable MEMBRANES Membranes Rupture Method: Artificial Rupture of Membranes: 09/19/2018 19:02 Length of Rupture (hr): 0.00 Amniotic Fluid Color: Clear Amniotic Fluid Amount: Moderate Amniotic Fluid Odor: None STAGES OF LABOR Stage 3 hr: 0 Stage 3 min: 1 Total Time in Labor hr: 25 Total Time in Labor min: 3 CSECTION DELIVERY Primary Indication: Repeat Elective Secondary Indication: N/A CSection Urgency: Non Elective CSection Incidence: Repeat Labor: No Labor Elective: Elective CSection Incision: Lower Uterine Transverse BABY A INFORMATION Delivery Date/Time: 09/19/2018 19:02 Method of Delivery: Born in Route : No : N/A Forceps: N/A Vacuum Extraction: N/A Shoulder Dystocia : N/A SHOULDER DYSTOCIA BABY A Infant Delivery Date/Time: 09/19/2018 19:02 PRESENTATION/POSITION BABY A Presentation: Cephalic Cephalic Presentation: Vertex Vertex Position: Left Occipital Anterior Breech Presentation: N/A PLACENTA INFORMATION BABY A Placenta Delivery Time : 09/19/2018 19:03 Placenta Method of Delivery: Manual Removal Placenta Status: Delivered SCORES BABY A Heart Rate 1 min: >100 bpm Resp Effort 1 min: Good Cry Reflex Irritability 1 min: Cough/Sneeze/Pulls Away Muscle Tone 1 min: Active Motion Color 1 min: Blue/Pale Resuscitation Effort 1 min: Tactile Stimulation SCORE 1 MIN: 8 Heart Rate 5 min: >100 bpm Resp Effort 5 min: Good Cry Reflex Irritability 5 min: Cough/Sneeze/Pulls Away Muscle Tone 5 min: Active Motion Color 5 min: Body [employer], Extremit Blue Resuscitation Effort 5 min: Tactile Stimulation SCORE 5 MIN: 9 INFORMATION BABY A Gestational Age at Delivery: 35.5 Gestational Status: Late - 34- 36.6 Weeks Outcome : Liveborn Infant Condition : Stable Sex: Female IDENTIFICATION/MEDS BABY A ID Band Number: [id number] ID Band Location: Right Leg; Left Arm Sensor Applied: Yes Sensor Number: [id number] Sensor Location : Cord Clamp Vitamin K Given : Not Given Erythromycin Given: Not Given WEIGHT/LENGTH BABY A Birthweight (gm): 2990 Weight (lb): 6 Infant Weight (oz): 9 Infant Length (in): 18.50 Infant Length (cm): 46.99 CORD INFORMATION BABY A No. Cord Vessels: 3 Nuchal Cord : N/A Cord Blood Taken: Yes Suction: Mouth; Nose ASSESSMENT BABY A Infant Complications: None Physical Findings at Delivery: Within Normal Limits Respirations: Appears Normal Raise Miner/ALS Called : No Infant Care By: ELIESER trejo Transferred To: Remains with Mother
== END 2018-09-23 12:30 | disposition home or self-care (01) | DRG 788 ==
LOC: OBT 11:25 → L-D 11:25 → OBT 17:45 → L-D 18:38 → PP1 22:03
PROVIDERS: ADMIT Obstetrics & Gynecology; ATTEND Obstetrics & Gynecology
PROC: 10D00Z1 Extraction of Products of Conception, Low, Open Approach (ICD-10-PCS; principal; 2018-09-19 18:30)
DX: O60.14X0 Preterm labor third trimester with preterm delivery third trimester, not applicable or unspecified (principal); O34.211 Maternal care for low transverse scar from previous cesarean delivery; Z3A.38 38 weeks gestation of pregnancy; Z37.0 Single live birth
CPT/HCPCS: 76705; 76775; 76815; 80053; 81001; 81003; 82150; 83690; 85025; 85610; 85730; 86592; 86850; 86900; 86901; 87086; 87340; 90686; 90715; 96360; 96361; 99464; G0463; J0690; J1170; J1200; J1885; J2210; J2274; J2370; J2405; J2590; J2765; J3105; J7120

== ENCOUNTER 2019-04-24 17:02 | Emergency (ER) | payer MEDICAID ==
[~2019-04-24] VITALS: Ht 167.6 cm; Wt 95.0 kg
[~2019-04-24 17:02] MED LIST changes: +ACYC400T2 PO; +D-ME473S2 PO; -PREN-93 PO; +PSEU-83 PO
[2019-04-24 17:27] VITALS: Ht 167.6 cm; Wt 95.0 kg
[2019-04-24 19:20] VITALS: PULSE 66; RESP 19
== END 2019-04-24 19:25 | disposition home or self-care (01) ==
LOC: FTE 17:02
DX: J06.9 Acute upper respiratory infection, unspecified (principal); B00.1 Herpesviral vesicular dermatitis
CPT/HCPCS: 81003; 81025; 87086; Z7502; 99283